=== PATIENT | female | born 1995 | race African-American/Black ===

== ENCOUNTER 2024-05-27 21:57 | Inpatient (IN) | payer OTHER ==
[2024-05-27] MEDS ORDERED: Phenylephrine HCl In 0.9% NaCl 1 MG/10 ML Syringe ONE (22:19)
[2024-05-27] MEDS ORDERED: Bupivacaine 0.5% 10 ML SDV ONE (22:19)
[2024-05-27] MEDS ORDERED: Ropivacaine HCl/PF 200 ML ONE (22:19)
[2024-05-27] MEDS ORDERED: Sodium Chloride 0.9% 20 ML SDV IV PRN (22:24)
[2024-05-27] MEDS ORDERED: Ondansetron 4 MG/2 ML SDV IVPUSH PRN (22:24)
[2024-05-27] MEDS ORDERED: Methylergonovine 0.2 MG/1 ML Amp IM PRN (22:24)
[2024-05-27] MEDS ORDERED: Lidocaine 1% 50 ML MDV INJECT PRN (22:24)
[2024-05-27] MEDS ORDERED: Water For Irrigation,Sterile 1,000 ML Container IRR PRN (22:24)
[2024-05-27] MEDS ORDERED: Misoprostol 200 MCG Tab PO PRN (22:24)
[2024-05-27] MEDS ORDERED: Sodium Chloride 0.9% 10 ML Syringe FLUSH PRN (22:24)
[2024-05-27] MEDS ORDERED: Carboprost Tromethamine 250 MCG/1 mL Vial IM PRN (22:24)
[2024-05-27] MEDS ORDERED: Sodium Chloride 0.9% 2.5 ML Syringe FLUSH PRN (22:24)
[2024-05-27] MEDS ORDERED: Ampicillin 2 GM Vial ONE (22:28)
[2024-05-27] MEDS ORDERED: Sodium Chloride 0.9% 50 ML ONE (22:29)
[2024-05-27] MEDS ORDERED: Oxytocin/0.9 % Sodium Chloride 30 UNIT/500 ML BAG IV SCH (22:30)
[2024-05-27] MEDS: Lactated Ringers 1,000 ML IV SCH (22:30)
[2024-05-27] MEDS: Butorphanol 2 MG/ML SDV IVPUSH PRN (22:32)
[2024-05-27] MEDS: Ampicillin 2 GM in Sodium Chloride 0.9% 100 ML IV ONE (22:33)
[2024-05-27 22:48] LABS: HEMATOCRIT 33.7 % (37.0-47.0); HEMOGLOBIN 10.7 g/dL (12.0-16.0); MEAN CORPUSCULAR HEMOGLOBIN 24.7 pg (28.0-32.0); MEAN CORPUSCULAR HGB CONC 31.8 g/dL (32.0-36.0); MEAN CORPUSCULAR VOLUME 77.8 fL (83.0-99.0); MEAN PLATELET VOLUME 11.8 fL (9.4-12.3); PLATELET COUNT,PLT 205 K/uL (150-400); RED BLOOD CELL COUNT 4.33 M/uL (4.10-5.30); WHITE BLOOD CELL COUNT,WBC 10.02 K/uL (3.9-11.3)
[2024-05-27] MEDS ORDERED: Bupivacaine 0.5% 10 ML SDV INJECT ONE (22:54)
[2024-05-27] MEDS ORDERED: ePHEDrine 50 MG/ML SDV IM PRN (22:54)
[2024-05-27] MEDS ORDERED: ePHEDrine 50 MG/ML SDV IVPUSH PRN (22:54)
[2024-05-27] MEDS ORDERED: Phenylephrine HCl In 0.9% NaCl 1 MG/10 ML Syringe IVPUSH PRN (22:54)
[2024-05-27] MEDS ORDERED: dexmedeTOMIDine HCl 200 MCG/2 ML SDV EPIDUR SCH (23:00)
[2024-05-27] MEDS: Ropivacaine HCl/PF 400 MG in Premix Bag 1 BAG EPIDUR SCH (23:17)
[2024-05-27] MEDS: Betamethasone Acetate/Betamethasone Sod Phosphate 6 MG/1 ML MDV IM ONE (23:33)
[2024-05-28] MEDS: Ampicillin 1 GM in Sodium Chloride 0.9% 50 ML IV SCH (02:27)
[2024-05-28] MEDS ORDERED: oxyCODONE 5 MG Tab PO PRN (03:50)
[2024-05-28] MEDS ORDERED: Witch Hazel Medicated Pads 40/Jar TOP PRN (03:50)
[2024-05-28] MEDS ORDERED: Benzocaine/Menthol 20%-0.5% Spray 78 GM Cannister TOP PRN (03:50)
[2024-05-28] MEDS ORDERED: Lanolin 100% Cream 7 GM Tube TOP PRN (03:50)
[2024-05-28 04:05] LABS: PH,UMBILICAL VENOUS 7.251 (7.25-7.45)
[2024-05-28] MEDS: Acetaminophen 500 MG Tab PO PRN (08:05)
[2024-05-28] MEDS: Ibuprofen 800 MG Tab PO PRN (08:05)
[2024-05-29 06:53] LABS: HEMATOCRIT 33.5 % (37.0-47.0); HEMOGLOBIN 10.1 g/dL (12.0-16.0)
[2024-05-29] MEDS: Docusate Sodium 100 MG Cap PO PRN (09:10)
== END 2024-05-30 16:30 | disposition home or self-care (01) | DRG 807 ==
LOC: MW.OBCHECK 21:57 → MW.OB 21:58 → MW.OBCHECK 22:24 → MW.OB 22:24 → OBSVTOIN 05-28 03:24 → MW.OB 05-28 09:00
PROVIDERS: ADMIT Obstetrics & Gynecology; ATTEND Obstetrics & Gynecology Obstetrics
PROC: 10E0XZZ Delivery of Products of Conception, External Approach (ICD-10-PCS; principal; 2024-05-28)
PROC: 3E0R3BZ Introduction of Anesthetic Agent into Spinal Canal, Percutaneous Approach (ICD-10-PCS; 2024-05-28)
PROC: 00HU33Z Insertion of Infusion Device into Spinal Canal, Percutaneous Approach (ICD-10-PCS; 2024-05-28)
DX: O34.219 Maternal care for unspecified type scar from previous cesarean delivery (principal); Z37.0 Single live birth; O99.824 Streptococcus B carrier state complicating childbirth; O99.02 Anemia complicating childbirth; Z3A.35 35 weeks gestation of pregnancy
CPT/HCPCS: 01967; 36415; 59025; 59612; 82803; 85014; 85018; 85027; 86592; 86850; 86900; 86901; A9270-GY; J0290; J0595; J0665; J0702; J2371; J2795; J3490; J7120